=== PATIENT | male | born 1960 | race Caucasian/White ===

== ENCOUNTER 2016-10-19 09:07 | Emergency (ER) | payer SELFPAY ==
[~2016-10-19] VITALS: Ht 170.2 cm; Wt 86.4 kg
[2016-10-19] MEDS ORDERED: CYCL10 PO (10:03)
[2016-10-19] MEDS ORDERED: IBUP-2070 PO (10:03)
[2016-10-19] MEDS ORDERED: MELO-273 PO (10:03)
[2016-10-19] MEDS ORDERED: ETOD500T2 PO (10:03)
[2016-10-19] MEDS ORDERED: TraMADol HCL 50 MG TABLET PO ONE (11:15)
[2016-10-19] MEDS ORDERED: METHOCARBAMOL 500 MG TABLET PO ONE ×2 (11:15)
[2016-10-19 12:50] VITALS: BP 121/76
== END 2016-10-19 12:52 | disposition home or self-care (01) ==
LOC: EMS 09:10 → EDBD 09:10 → EMS 12:52
DX: M54.5 Low back pain (principal); G89.29 Other chronic pain; Z90.49 Acquired absence of other specified parts of digestive tract
CPT/HCPCS: 99283